=== PATIENT | male | born 1965 | race Caucasian/White ===

== ENCOUNTER 2020-10-19 06:53 | Observation (INO) | payer OTHER ==
[~2020-10-19] VITALS: Ht 175.3 cm; Wt 82.4 kg
[2020-10-19] VITALS (8 sets, daily range): BP systolic 82–122; BP diastolic 58–81
[2020-10-19] MEDS ORDERED: MIDAZOLAM 1 MG/ML, 2ML ONE ×3 (07:13→10:47)
[2020-10-19] MEDS ORDERED: ADENOSINE 6 MG/2 ML ONE (07:14)
[2020-10-19] MEDS ORDERED: ISOPROTERENOL 0.2MG/ML, 5ML ONE (07:14)
[2020-10-19] MEDS ORDERED: FENTANYL PF 100 MCG/2ML ONE ×3 (07:14→10:33)
[2020-10-19] MEDS ORDERED: LIDOCAINE 1%, 20ML ONE (07:14)
[2020-10-19] MEDS ORDERED: SODIUM CHLORIDE 0.9% 1,000 ML IV SCH (07:30)
[2020-10-19 08:07] LABS: BASOPHILS % (AUTO) 1 % (0-1); EOSINOPHILS % (AUTO) 2 % (1-7); LYMPHOCYTES % (AUTO) 14 % (22-44); MEAN CORPUSCULAR HEMOGLOBIN 30.7 pg (27.5-34.5); MEAN CORPUSCULAR HGB CONC 34.7 g/dL (33.2-36.2); MEAN PLATELET VOLUME 9.7 fL (7.4-10.4); MONOCYTES % (AUTO) 8 % (2-9); NEUTROPHILS % (AUTO) 76 % (42-75); PLATELET COUNT 201 x10^3/uL (130-400); RED BLOOD COUNT 5.17 x10^6/uL (4.38-5.82); RED CELL DISTRIBUTION WIDTH 13.1 % (9.4-14.8)
[2020-10-19 08:13] LABS: MD NO
[2020-10-19 08:16] LABS: ANION GAP 2 mmol/L (5-15); CALCIUM 9.4 mg/dL (8.5-10.1); CHLORIDE 109 mmol/L (98-107)
[2020-10-19 08:19] LABS: CREATININE 0.99 mg/dL (0.7-1.3)
[2020-10-19] MEDS ORDERED: MIDAZOLAM 1 MG/ML, 5ML ONE (09:15)
[2020-10-19] MEDS ORDERED: HEPARIN 1,000 UNITS/ML, 10ML ONE (09:19)
[2020-10-19] MEDS ORDERED: LIDOCAINE 2%, 20ML ONE (10:08)
[2020-10-19] MEDS ORDERED: PROTAMINE SULFATE 10 MG/ML, 5ML ONE (12:11)
[2020-10-19] MEDS ORDERED: CLOPIDOGREL 75 MG TABLET ONE (12:11)
[2020-10-19] MEDS: CLOPIDOGREL 75 MG TABLET PO SCH (12:55)
[2020-10-20] MEDS ORDERED: ACETAMINOPHEN 325 MG TABLET PO PRN
[2020-10-20 01:30] VITALS: BP 106/60
[2020-10-20 06:41] LABS: BASOPHILS % (AUTO) 1 % (0-1); EOSINOPHILS % (AUTO) 2 % (1-7); LYMPHOCYTES % (AUTO) 12 % (22-44); MEAN CORPUSCULAR HEMOGLOBIN 30.5 pg (27.5-34.5); MEAN CORPUSCULAR HGB CONC 34.4 g/dL (33.2-36.2); MEAN PLATELET VOLUME 9.7 fL (7.4-10.4); MONOCYTES % (AUTO) 8 % (2-9); NEUTROPHILS % (AUTO) 78 % (42-75); PLATELET COUNT 191 x10^3/uL (130-400); RED BLOOD COUNT 4.98 x10^6/uL (4.38-5.82)
[2020-10-20 06:48] LABS: MD NO
[2020-10-20 07:16] VITALS: BP 118/78
[2020-10-20] MEDS: CLOPIDOGREL 75 MG TABLET PO SCH (10:26)
[2020-10-20] MEDS ORDERED: CLOP75TA PO (10:53)
== END 2020-10-20 14:47 | disposition home or self-care (01) ==
LOC: CACL 06:53 → EDBD 08:00 → 5SO 12:49 → CACL 14:12 → 5SO 17:48 → DCLOUNGE 10-20 14:42
PROVIDERS: ADMIT Internal Medicine Cardiovascular Disease; ATTEND Internal Medicine Cardiovascular Disease
DX: I47.1 Supraventricular tachycardia (principal); Z79.899 Other long term (current) drug therapy
CPT/HCPCS: 36415; 80048; 82962; 85025; 85347; 93306; 93356; 93454; 93462; 93613; 93621; 93623; 93653; 93662; 99156; 99157; C1730; C1732; C1760; C1766; C1893; C1894; C2630; G0378; J1644; J2250; J2720; J3010; J3490; Q9967; J0153